=== PATIENT | male | born 1985 | race Caucasian/White ===

== ENCOUNTER 2024-07-25 23:58 | Emergency (ER) | payer OTHER, SELFPAY ==
--- NOTE | ~2024-07-25 | XR_ITS ---
Portable chest x-ray Comparison: 04/02/2004 Clinical History: Status post fall Findings: Lungs are clear, without focal consolidation or pleural effusion. Cardiomediastinal silho uette is stable. Bones and soft tissues are unremarkable. Impression: Normal chest. Reviewed, dictated and finalized at location . Impression: Normal chest.
--- NOTE | ~2024-07-25 | CT_ITS ---
Non-contrast Head CT History: Head injury Technique: Axial non-contrast imaging of the brain was performed. Dose reduction technique was used on this scan by utilizing automated exposure control and iterative reconstruction technique. The dose -length product (DLP) was 756.67 mGy-cm. Findings: There is no evidence of intracranial hemorrhage, mass lesion, or acute infarct. There is b ifrontal atrophy. Ventricles and subarachnoid spaces are otherwise unremarkable. The calvarium appea rs normal. The visualized paranasal sinuses and mastoid air cells are clear. Impression: No acute abnormality seen. Bifrontal atrophy. Reviewed, dictated and finalized at location . Impression: No acute abnormality seen. Bifrontal atrophy.
--- NOTE | ~2024-07-25 | XR_ITS ---
Right wrist Technique: PA, oblique, lateral, and ulnar deviation views were obtained. Clinical History: Injury Findings: No acute fracture or dislocation is seen. Osseous alignment is anatomic. Joint spaces are p reserved. Soft tissues are unremarkable. Impression: Unremarkable right wrist radiographs. Reviewed, dictated and finalized at location . Impression: Unremarkable right wrist radiographs.
--- NOTE | ~2024-07-25 | CT_ITS ---
CT Facial Bones and Cervical Spine Clinical Indication: Injury Technique: Contiguous axial scans were obtained through the facial bones and cervical spine followed by coronal and sagittal reconstructions. Dose reduction technique was used on this scan by utilizing automated exposure control and iterative reconstruction technique. The dose-length product (DLP) was 523.47 mGy-cm. Findings: CT facial bones: No fractures are identified. Prominent retention cyst or polyp present in the left m axillary sinus. The remaining visualized paranasal sinuses are clear. Intraorbital soft tissues appea r normal. CT cervical spine: No fractures or subluxation. Unremarkable visualized bony structures. The interv ertebral disc spaces are preserved. No prevertebral soft tissue swelling. Impression: No fracture is seen in the facial bones. No fracture or subluxation of the cervical spine. Reviewed, dictated and finalized at [facility]. Impression: No fracture is seen in the facial bones. No fracture or subluxation of the cervical spine.
[2024-07-26] VITALS (22 sets, daily range): BP systolic 112–132; BP diastolic 70–86; PULSE 78–115; RESP 13–23; TEMP 36.1–37.1; O2SAT 95–100
--- NOTE | 2024-07-26 00:29 | PC.NURSE ---
EDP Tonia at bedside for assessment. Pt placed on transport monitor and this rn with core microarchitect transported pt to CT.
[2024-07-26] MEDS: TETANUS,DIPHTHERIA,AC PERTUSSIS ADULT (0.5 ML) BOOSTRIX IM (01:15)
--- NOTE | 2024-07-26 02:28 | ED_ITS ---
HPI - Head Injury General Chief complaint: Trauma <LALA Mccall Last Filed: 07/26/24 02:40> Stated complaint: fall <LALA Mccall Last Filed: 07/26/24 02:40> Time Seen by Provider: 07/26/24 00:30 <LALA Mccall Last Filed: 07/26/24 02:40> History of Present Illness HPI Narrative: 38-year-old male presents to the ED after falling down 10-12 stairs prior to arrival. Patient states he was carrying a water container down the stairs, tripped and fell down the flight of stairs. He did hit his head and believes he may have lost consciousness but woke up quickly. He is not anticoagulated. States he laid on the ground for 10 minute because he felt weak after the fall. Upon arrival to the ED the patient is reporting pain to the left side of his face with a superficial overlying laceration, headache, dizziness, neck pain and abrasion to the right wrist. Last Tdap unknown. He denies chest wall pain, abdominal pain, back pain, other extremity injury, other injuries acquired. <LALA Mccall Last Filed: 07/26/24 02:40> Related Data Allergies/Adverse reactions: Allergies Allergy/AdvReac Type Severity Reaction Status Date / Time No Known Allergies Allergy Verified 07/26/24 00:07 <LALA Mccall Last Filed: 07/26/24 02:40> Review of Systems Review of Systems: All systems reviewed & are unremarkable except as noted in HPI and below <LALA Mccall Last Filed: 07/26/24 02:40> Exam Narrative: GENERAL: Well-appearing, well-nourished, and in no acute distress. HEAD: Normocephalic, atraumatic. EYES: PERRLA and EOMI. ENT: Tenderness to the bridge of the nose with no overlying ecchymosis, lacerations or abrasions. No septal hematoma, no epistaxis. Mucous membranes moist. Superficial abrasion to the inside of the left cheek with no active bleeding, no dental trauma, no tongue lacerations. 1 cm superficial laceration to the left cheek just lateral to the nasal labial fold with no deep structures or foreign bodies visualized, no active bleeding, wound is very well approximated NECK: C-collar in place BACK: Midline thoracolumbar spinous tenderness, crepitus, step-offs or deformities CHEST: Clear to auscultation. No respiratory distress. No tenderness to chest wall, no ecchymosis or crepitus HEART: Regular rate and rhythm. No murmur heard. Normal peripheral pulses. ABDOMEN: Soft, nontender, nondistended, normal active bowel sounds. No rebound, guarding or rigidity, no overlying ecchymosis EXTREMITIES: Normal range of motion. No edema. No tenderness to BUE are BLE SKIN: Superficial abrasion to the distal right ulna with minimal overlying tenderness, no obvious deformity, full range of motion of wrist and hand, radial , median and ulnar nerves are intact. Radial pulse 2 +. Sensation intact throughout. NEURO: No focal deficits. Alert and oriented x4. Cranial nerves 2-12 intact. Strength 5/5 in BUE and BLE. Sensation intact throughout. <Tonia Saez PA-C - Last Filed: 07/26/24 02:40> Course [employer] EXCHANGE COORDINATOR/PA Physician Supervision I agree with midlevel documentation; I performed the medical decision making component of this evaluation. <Yoselin Ibarra MD - Last Filed: 07/26/24 04:30> Vital Signs Vital signs: Vital Signs Temperature 97 F L 07/26/24 00:02 Pulse Rate 115 H 07/26/24 00:02 Respiratory Rate 16 07/26/24 00:02 Blood Pressure 126/86 07/26/24 00:02 Pulse Oximetry 100 07/26/24 00:02 Oxygen Delivery Room Air 07/26/24 00:02 Temperature 97.6 F 07/26/24 02:52 Pulse Rate 92 07/26/24 02:52 Respiratory Rate 13 07/26/24 02:52 Blood Pressure 127/81 07/26/24 02:52 Pulse Oximetry 100 07/26/24 02:52 Oxygen Delivery Room Air 07/26/24 00:14 <Tonia Saez PA-C - Last Filed: 07/26/24 02:40> Vital Signs Temperature 97 F L 07/26/24 00:02 Pulse Rate 115 H 07/26/24 00:02 Respiratory Rate 16 07/26/24 00:02 Blood Pressure 126/86 07/26/24 00:02 Pulse Oximetry 100 07/26/24 00:02 Oxygen Delivery Room Air 07/26/24 00:02 Temperature 97.6 F 07/26/24 02:52 Pulse Rate 92 07/26/24 02:52 Respiratory Rate 13 07/26/24 02:52 Blood Pressure 127/81 07/26/24 02:52 Pulse Oximetry 100 07/26/24 02:52 Oxygen Delivery Room Air 07/26/24 00:14 <Yoselin Ibarra MD - Last Filed: 07/26/24 04:30> MDM - Head Injury MDM Narrative Medical decision making narrative: 38-year-old male presents emergency department after a mechanical fall down a flight of stairs that occurred prior to arrival. Patient did hit his head, please in a lost consciousness but immediately awoke. He is not anticoagulated. He is presenting with a laceration to the left side cheek, neck pain, right wrist abrasion/pain. Upon arrival to the ED patient is tachycardic at 115bpm and is anxious appearing. Head to toe trauma exam is notable for the above. Patient is neurovascularly intact. X-ray of the wrist shows no acute osseous findings. CT brain shows no acute intracranial findings. CT facial bone shows tiny nasal bone fractures, otherwise no acute fracture. Patient does have tenderness to the bridge of his nose, no active epistaxis, no septal hematomas on exam CT cervical spine shows no acute findings. Chest x-ray shows hypoinflation, otherwise unremarkable. He has no tenderness to chest wall and lung sounds are clear. Patient and mother bedside updated on results. Tdap updated. Wounds cleansed with normal saline. The laceration to the left cheek is very superficial in nature, well approximated with no active bleeding, no deep structures or foreign bodies visualized. It is not through and through. It is not requiring primary closure and will heal well by secondary intention. Patient remains neurovascularly intact on repeat exam. He was advised to follow-up with PCP and ENT and discussed strict ED return precautions. He is agreeable with the plan verbalized understanding. Discharged in stable condition. <Tonia Saez PA-C - Last Filed: 07/26/24 02:40> Discharge Plan Discharge Clinical Impression: Laceration, Abrasion Head injury Qualifiers: Encounter type: initial encounter Qualified Code(s): S09.90XA - Unspecified injury of head, initial encounter Closed fracture nasal bone Qualifiers: Encounter type: initial encounter Qualified Code(s): S02.2XXA - Fracture of nasal bones, initial encounter for closed fracture <Tonia Saez PA-C - Last Filed: 07/26/24 02:40> Patient Disposition: Home <LALA Mccall Last Filed: 07/26/24 02:40> Condition: Stable <LALA Mccall Last Filed: 07/26/24 02:40> Instructions: Antibiotic Form, Nasal Fracture (ED), Head Injury (ED) <LALA Mccall Last Filed: 07/26/24 02:40> Additional Instructions: You were evaluated in the emergency department after falling down the stairs. Your imaging shows small nasal bone fractures. Please refrain from blowing her nose and follow-up with the ENT. Take Tylenol and ibuprofen as needed for pain as directed over the counter. Please keep your wound clean and dry. Return to the emergency department if you develop vision changes, focal numbness or weakness, extensive nose bleeding, surrounding redness or drainage your wounds, fever, confusion, seizure-like activity or other concerning symptoms. <Tonia Saez PA-C - Last Filed: 07/26/24 02:40> Patient Language: [place] <Tonia Saez PA-C - Last Filed: 07/26/24 02:40> Follow-up/Referrals: Kiah Garcia MD [Physician] - Jose Velez MD [Physician] - PHYSICIAN NOT ON STAFF,NONSTAFF [Primary Care Provider] - <Tonia Saez PA-C - Last Filed: 07/26/24 02:40>
== END 2024-07-26 02:54 | disposition home or self-care (01) ==
PROVIDERS: Emergency Provider Physician Assistant
DX: S02.2XXA Fracture of nasal bones, initial encounter for closed fracture (principal); S01.412A Laceration without foreign body of left cheek and temporomandibular area, initial encounter; S60.811A Abrasion of right wrist, initial encounter; W10.9XXA Fall (on) (from) unspecified stairs and steps, initial encounter; Z23 Encounter for immunization
CPT/HCPCS: 70450; 70486; 71045; 72125; 73110; 90471; 90715; 99284